=== PATIENT | male | born 1960 | race Caucasian/White ===

== ENCOUNTER 2019-03-29 06:06 | Emergency (ER) | payer SELFPAY, BC ==
[2019-03-29] MEDS: IBUPROFEN 800 MG TAB PO (06:37)
== END 2019-03-29 07:28 | disposition home or self-care (01) ==
LOC: FTE 06:06
DX: S90.32XA Contusion of left foot, initial encounter (principal); I10 Essential (primary) hypertension; V28.9XXA Unspecified motorcycle rider injured in noncollision transport accident in traffic accident, initial encounter
CPT/HCPCS: 73610; 73630-LT; 99283-25